=== PATIENT | female | born 1930 | race Caucasian/White ===

== ENCOUNTER 2017-12-29 15:22 | Observation (INO) ==
[2017-12-29 16:18] LABS: Basophils # 0.1 10*3/uL (0.0-0.2); Basophils % 0.5 % (0.0-0.8); Eosinophils # 0.6 10*3/uL (0.0-0.87); Eosinophils % 5.1 % (0.00-10.9); Hematocrit 44.5 VOL% (35.7-47.0); Hemoglobin 15.4 GM/DL (12.0-16.0); Immature Granulocytes % 0.4 %; Immature Granulocytes Absolute 0.05 #; Lymphocytes % 26.7 % (21.3-54.2); Mean Corpuscular HGB Conc 34.6 GM/DL (32-36); Mean Corpuscular Hemoglobin 33 PG (27-34); Mean Corpuscular Volume 94.9 FL (87-102); Mean Platelet Volume 9.5 FL (9.6-12.0); Monocytes # 0.9 10*3/uL (0.11-0.8); Monocytes % 7.9 % (1.7-12.7); Neutrophils # 6.7 10*3/uL (1.4-7.4); Neutrophils % 59.4 % (38.7-73.9); Platelet Count 273 T/CUMM (130-400); Red Blood Count 4.69 MC/CUMM (3.8-5.5); Red Cell Distribution Width 12.6 % (9.3-17.3); White Blood Count 11.2 T/CUMM (4-12)
[2017-12-29 16:43] LABS: Alanine Aminotransferase 42 U/L (13-56); Albumin 3.4 G/DL (3.4-5.0); Alkaline Phosphatase 91 U/L (45-117); Aspartate Amino Transferase 38 U/L (0-37); Blood Urea Nitrogen 24 MG/DL (7-18); Calcium 9.8 MG/DL (8.5-10.1); Glucose 268 MG/DL (74-106); Osmolality,Calculated 287.7 MOS/KG (273-304); Potassium 4.5 MMOL/L (3.5-5.1); Sodium 138 MMOL/L (136-145); Total Protein 8.4 G/DL (6.4-8.3); Troponin I < 0.015 NG/ML (0.00-0.045)
[2017-12-29] MEDS ORDERED: ACETAMINOPHEN 325 MG TABLET PO PRN (17:52)
[2017-12-29] MEDS ORDERED: ONDANSETRON 4 MG/2 ML VIAL IV PRN (17:52)
[2017-12-29] MEDS ORDERED: DEXTROSE 50% 25 GM/50 ML VIAL IV PRN (17:52)
[2017-12-29] MEDS ORDERED: GLUCAGON 1 MG VIAL IM PRN (17:52)
[2017-12-29] MEDS ORDERED: NON-FORMULARY MEDICATION (Magnesium [Magnesium] 250 MG) PO SCH (21:00)
[2017-12-29] MEDS: GABAPENTIN 300 MG CAPSULE PO SCH (21:02)
[2017-12-29] MEDS: ENOXAPARIN 30 MG/0.3 ML SYRINGE SUBCUT SCH (21:02)
[2017-12-29] MEDS: INSULIN GLARGINE 100 UNIT/ML SUBCUT SCH (21:02)
[2017-12-29] MEDS: CILOSTAZOL 50 MG TABLET PO SCH (21:03)
[2017-12-29] MEDS: DOCUSATE SODIUM 100 MG CAPSULE PO SCH (21:03)
[2017-12-30 06:56] LABS: Troponin I < 0.015 NG/ML (0.00-0.045)
[2017-12-30 07:43] LABS: Troponin I < 0.015 NG/ML (0.00-0.045)
[2017-12-30] MEDS: FOLIC ACID 0.4 MG TABLET PO SCH (10:20)
[2017-12-30] MEDS: CILOSTAZOL 50 MG TABLET PO SCH ×2 (10:20→20:54)
[2017-12-30] MEDS: MULTIVITAMIN (OCUVITE) TABLET PO SCH (10:20)
[2017-12-30] MEDS: VITAMIN E 400 UNIT CAPSULE PO SCH (10:20)
[2017-12-30] MEDS: OMEGA 3 ACID ETHYL ESTERS 1 GM CAPSULE PO SCH (10:20)
[2017-12-30] MEDS: glipiZIDE 5 MG TABLET PO SCH (10:21)
[2017-12-30] MEDS: GABAPENTIN 300 MG CAPSULE PO SCH ×2 (10:21→20:55)
[2017-12-30] MEDS: FEBUXOSTAT 80 MG TABLET PO SCH (10:21)
[2017-12-30] MEDS: DOCUSATE SODIUM 100 MG CAPSULE PO SCH ×2 (10:22→20:55)
[2017-12-30] MEDS: PANTOPRAZOLE 40 MG TABLET PO SCH (10:22)
[2017-12-30] MEDS: THIAMINE 100 MG TABLET PO SCH (10:41)
[2017-12-30 11:02] LABS: Troponin I < 0.015 NG/ML (0.00-0.045)
[2017-12-30 13:47] LABS: Troponin I < 0.015 NG/ML (0.00-0.045)
[2017-12-30 16:25] LABS: Troponin I < 0.015 NG/ML (0.00-0.045)
[2017-12-30] MEDS: INSULIN GLARGINE 100 UNIT/ML SUBCUT SCH (20:54)
[2017-12-30] MEDS: ENOXAPARIN 30 MG/0.3 ML SYRINGE SUBCUT SCH (20:54)
[2017-12-31 08:01] VITALS: BP 134/60
[2017-12-31] MEDS: MULTIVITAMIN (OCUVITE) TABLET PO SCH (08:40)
[2017-12-31] MEDS: FOLIC ACID 0.4 MG TABLET PO SCH (08:40)
[2017-12-31] MEDS: GABAPENTIN 300 MG CAPSULE PO SCH (08:40)
[2017-12-31] MEDS: THIAMINE 100 MG TABLET PO SCH (08:41)
[2017-12-31] MEDS: FEBUXOSTAT 80 MG TABLET PO SCH (08:43)
[2017-12-31] MEDS: OMEGA 3 ACID ETHYL ESTERS 1 GM CAPSULE PO SCH (08:43)
[2017-12-31] MEDS: PANTOPRAZOLE 40 MG TABLET PO SCH (08:43)
[2017-12-31] MEDS: CILOSTAZOL 50 MG TABLET PO SCH (08:44)
[2017-12-31] MEDS: VITAMIN E 400 UNIT CAPSULE PO SCH (08:44)
[2017-12-31] MEDS: DOCUSATE SODIUM 100 MG CAPSULE PO SCH (08:45)
[2017-12-31] MEDS: glipiZIDE 5 MG TABLET PO SCH (08:45)
== END 2017-12-31 10:15 | disposition home or self-care (01) ==
LOC: N.ED 15:22 → N.EDINP 15:22 → N.TELEN 18:20
PROVIDERS: ADMIT Family Medicine; ATTEND Family Medicine